=== PATIENT | female | born 1985 | race Two or more races ===

== ENCOUNTER → 2018-08-02 10:20 | Outpatient (CLI) | payer OTHER | END | disposition home or self-care (01) | LOC: LAB 10:20 | DX: Z11.3 Encounter for screening for infections with a predominantly sexual mode of transmission (principal) ==

== ENCOUNTER 2018-08-03 11:16 | Outpatient (CLI) | payer OTHER | END 2018-08-03 14:57 | disposition home or self-care (01) | LOC: MAMO-SONO 11:16 | DX: Z12.31 Encounter for screening mammogram for malignant neoplasm of breast (principal); N64.4 Mastodynia; N63.10 Unspecified lump in the right breast, unspecified quadrant; N63.20 Unspecified lump in the left breast, unspecified quadrant ==

== ENCOUNTER → 2019-08-30 08:28 | Outpatient (CLI) | payer OTHER ==
[~2019-08-30 08:28] MED LIST: LO LOESTRIN FE1 EACH PO
== END | disposition home or self-care (01) ==
LOC: LAB 08:28
PROVIDERS: ATTEND Obstetrics & Gynecology
DX: E03.8 Other specified hypothyroidism (principal); N39.0 Urinary tract infection, site not specified; E78.2 Mixed hyperlipidemia; E56.9 Vitamin deficiency, unspecified; E55.9 Vitamin D deficiency, unspecified; R97.1 Elevated cancer antigen 125 [CA 125]; R53.1 Weakness; E66.01 Morbid (severe) obesity due to excess calories; Z11.3 Encounter for screening for infections with a predominantly sexual mode of transmission; E16.1 Other hypoglycemia

== ENCOUNTER → 2019-10-25 | Outpatient (CLI) | payer OTHER | END | disposition home or self-care (01) | LOC: MAMO-SONO 12:10 | PROVIDERS: ATTEND General Practice | DX: R94.6 Abnormal results of thyroid function studies (principal); Z12.31 Encounter for screening mammogram for malignant neoplasm of breast; N64.4 Mastodynia; N64.59 Other signs and symptoms in breast ==

== ENCOUNTER → 2020-01-08 14:59 | Outpatient (CLI) | payer OTHER | END | disposition home or self-care (01) | LOC: LAB 14:59 | PROVIDERS: ATTEND Internal Medicine | DX: R05 Cough (principal); Z20.828 Contact with and (suspected) exposure to other viral communicable diseases ==

== ENCOUNTER 2020-02-08 10:04 | Outpatient (CLI) | payer OTHER | END 2020-02-08 14:26 | disposition home or self-care (01) | LOC: LAB 10:04 | PROVIDERS: ATTEND Internal Medicine | DX: Z20.828 Contact with and (suspected) exposure to other viral communicable diseases (principal) ==

== ENCOUNTER 2020-02-13 11:43 | Outpatient (CLI) | payer OTHER | END 2020-02-13 11:44 | disposition home or self-care (01) | LOC: LAB 11:43 | DX: Z20.828 Contact with and (suspected) exposure to other viral communicable diseases (principal) ==

== ENCOUNTER 2020-02-26 13:54 | Outpatient (CLI) | payer OTHER | END 2020-02-26 13:55 | disposition home or self-care (01) | LOC: LAB 13:54 | PROVIDERS: ATTEND Internal Medicine | DX: R05 Cough (principal); Z20.828 Contact with and (suspected) exposure to other viral communicable diseases ==

== ENCOUNTER → 2020-05-01 14:20 | Outpatient (CLI) | payer OTHER | END | disposition home or self-care (01) | LOC: LAB 14:20 | PROVIDERS: ATTEND Internal Medicine | DX: R05 Cough (principal); Z20.822 Contact with and (suspected) exposure to COVID-19 ==

== ENCOUNTER 2020-07-17 07:02 | Outpatient (CLI) | payer OTHER | END 2020-07-17 07:12 | disposition home or self-care (01) | LOC: SONOGRAMA 07:02 | PROVIDERS: ATTEND Internal Medicine | DX: Z12.31 Encounter for screening mammogram for malignant neoplasm of breast (principal) ==

== ENCOUNTER → 2020-10-21 09:30 | Outpatient (CLI) | payer OTHER ==
[~2020-10-21 09:30] MED LIST changes: +INTESTINEX680 M1 PO; +MONDOXYNE NL100 MG PO
== END | disposition home or self-care (01) ==
LOC: ASH CLINIC 09:30
PROVIDERS: ATTEND Internal Medicine Pulmonary Disease
DX: Z23 Encounter for immunization (principal); U07.1 COVID-19

== ENCOUNTER 2021-04-14 14:20 | Outpatient (CLI) | payer OTHER | END 2021-04-14 16:37 | disposition home or self-care (01) | LOC: LAB 14:20 | DX: Z20.822 Contact with and (suspected) exposure to COVID-19 (principal); Z11.52 Encounter for screening for COVID-19 ==

== ENCOUNTER → 2021-05-06 15:38 | Outpatient (CLI) | payer OTHER | END | disposition home or self-care (01) | LOC: LAB 13:26 | PROVIDERS: ATTEND Obstetrics & Gynecology | DX: E16.2 Hypoglycemia, unspecified (principal); N39.0 Urinary tract infection, site not specified; E78.2 Mixed hyperlipidemia; E56.9 Vitamin deficiency, unspecified; E55.9 Vitamin D deficiency, unspecified; E03.9 Hypothyroidism, unspecified; R97.1 Elevated cancer antigen 125 [CA 125]; R53.1 Weakness; E66.01 Morbid (severe) obesity due to excess calories; Z11.3 Encounter for screening for infections with a predominantly sexual mode of transmission ==

== ENCOUNTER 2021-10-28 09:30 | Outpatient (CLI) | payer OTHER | END 2021-10-28 12:44 | disposition home or self-care (01) | LOC: SONOGRAMA 09:30 | DX: Z12.31 Encounter for screening mammogram for malignant neoplasm of breast (principal); N64.4 Mastodynia; N63.0 Unspecified lump in unspecified breast ==

== ENCOUNTER 2022-02-16 12:08 | Outpatient (CLI) | payer OTHER ==
[~2022-02-16 12:08] MED LIST changes: +NORFLEX100MG PO
== END 2022-02-16 12:09 | disposition home or self-care (01) ==
LOC: RAD 12:08 → LAB 12:08
PROVIDERS: ATTEND Internal Medicine
DX: M54.6 Pain in thoracic spine (principal)

== ENCOUNTER 2023-08-30 12:09 | Outpatient (CLI) | payer OTHER ==
[~2023-08-30 12:09] MED LIST changes: +BUDESONIDE0.5 MG/2 M IH; +DEXCOM G7 SENS1 EACH SUBCUTANEO; +DICLEGIS DR 101 EACH PO; +RAYOS5 MG PO; +XOPENEX CO1.25 MG/0. IH; +ZITHROMAX500 MG PO
== END 2023-08-30 12:13 | disposition home or self-care (01) ==
LOC: RAD 12:09
PROVIDERS: ATTEND Internal Medicine
DX: R05.9 Cough, unspecified (principal)

== ENCOUNTER 2023-09-08 10:56 | Outpatient (CLI) | payer OTHER ==
[2023-09-08 11:34] LABS: URINE APPEARANCE Clear; URINE BILIRRUBIN Negative (NEGATIVE); URINE BLOOD Negative; URINE COLOR Yellow; URINE GLUCOSE Negative (NEGATIVE); URINE LEUKOCYTE Negative; URINE NITRATE Negative; URINE PROTEIN Negative (NEGATIVE)
[2023-09-08 11:39] LABS: URINE BACTERIA 40.3 uL (0.0-1933); URINE EPITHELIAL CELLS 3.8 uL (0.0-38.8); URINE RBC 0.9 uL (0.0-20.8); URINE WBC 2.7 uL (0.0-23.2)
[2023-09-08 12:24] LABS: HEMATOCRIT 35.6 % (36.0-45.00); HEMOGLOBIN 12.5 g/dL (12.0-15.00); MEAN CORPUSCULAR HEMOGLOBIN 29.5 pg (27.00-32.0); MEAN CORPUSCULAR HGB CONC 35.1 g/dl (32.0-36.0); PLATELET COUNT 180 K/uL (150-450); RED BLOOD COUNT 4.23 M/uL (4.00-6.00); RED CELL DISTRIBUTION WIDTH 13.5 % (11.5-14.5)
== END 2023-09-08 10:57 | disposition home or self-care (01) ==
LOC: LAB 10:56
PROVIDERS: ATTEND Obstetrics & Gynecology Maternal & Fetal Medicine
DX: Z34.81 Encounter for supervision of other normal pregnancy, first trimester (principal)

== ENCOUNTER 2023-11-01 18:15 | Inpatient (IN) | payer OTHER ==
[~2023-11-01] VITALS: Ht 162.6 cm; Wt 72.6 kg
[2023-11-01 18:05] VITALS: BP 155/99; BP 162/96
[2023-11-01] MEDS ORDERED: MAGNESIUM SULFATE IN WATER 4GM/50ML PIGGYBAG IV ONE (18:18)
[2023-11-01] MEDS ORDERED: MAGNESIUM SULFATE IN WATER 0.04 GM/ML IV.SOLN IV ONE (18:18)
[2023-11-01] MEDS ORDERED: BETAMETHASONE ACETATE,SOD PHOS 30 MG/5 ML ML ONE (18:18)
[2023-11-01] MEDS ORDERED: BETAMETHASONE ACETATE,SOD PHOS 30 MG/5 ML ML IM ONE (18:30)
[2023-11-01] MEDS ORDERED: MAGNESIUM SULFATE IN WATER 500 ML IV SCH (18:45)
[2023-11-01] MEDS ORDERED: MAGNESIUM SULFATE IN WATER 100 ML IV ONE (18:45)
[2023-11-01] MEDS ORDERED: RINGERS SOLUTION,LACTATED 1,000 ML IV SCH (18:45)
[2023-11-01] MEDS ORDERED: MORPHINE SULFATE 4 MG/ML CARTRIDGE IV ONE (18:45)
[2023-11-01] MEDS ORDERED: PRENATABS RX T1 EACH PO (18:54)
[2023-11-01 19:25] LABS: HEMATOCRIT 36.9 % (36.0-45.00); HEMOGLOBIN 12.9 g/dL (12.0-15.00); MEAN CELL VOLUME 84.5 fL (80.00-100.00); MEAN CORPUSCULAR HEMOGLOBIN 29.5 pg (27.00-32.0); PLATELET COUNT 226 K/uL (150-450); RED BLOOD COUNT 4.36 M/uL (4.00-6.00); RED CELL DISTRIBUTION WIDTH 13.6 % (11.5-14.5)
[2023-11-01] MEDS ORDERED: AMPICILLIN SODIUM 2,000 MG VIAL ONE (19:27)
[2023-11-01] MEDS ORDERED: AMPICILLIN SODIUM 2,000 MG VIAL IV ONE (19:30)
[2023-11-01 19:51] LABS: INR < 0.93; PROTHROMBIN TIME 10.1 SECONDS (9.0-11.5)
[2023-11-01 19:56] LABS: ALBUMIN 2.7 gm/dL (3.4-5.0); BILIRUBIN TOTAL 0.61 mg/dL (0.3-1.2); CREATININE SERUM 0.52 mg/dL (0.55-1.02); GFR 132.69; GLOBULINA 3.5 G/DL (2.4-3.5); POTASSIUM 4.14 mEq/L (3.5-5.1); TOTAL PROTEIN 6.2 gm/dL (6.4-8.2)
[2023-11-01] MEDS ORDERED: AZITHROMYCIN 500 MG TABLET PO SCH (20:15)
[2023-11-01] MEDS ORDERED: AMPICILLIN SODIUM 1,000 MG VIAL IV SCH (21:00)
[2023-11-01 23:41] VITALS: BP 136/78
[2023-11-02] VITALS (8 sets, daily range): BP systolic 115–143; BP diastolic 63–88; O2SAT 99
[2023-11-02] MEDS ORDERED: MORPHINE SULFATE 4 MG/ML VIAL IV PRN (01:45)
[2023-11-02] MEDS ORDERED: NALOXONE HCL 0.4 MG/ML AMPUL ONE (04:13)
[2023-11-02] MEDS ORDERED: OXYTOCIN 20 UNITS/1000ML RL PIGGYBAG IV ONE (04:14)
[2023-11-02] MEDS ORDERED: CHLORHEXIDINE GLUCONATE 120 ML BOTTLE TOP ONE ×2 (04:14→06:45)
[2023-11-02] MEDS ORDERED: LIDOCAINE HCL 1% 10ML VIAL ONE (04:14)
[2023-11-02] MEDS ORDERED: ERYTHROMYCIN BASE 1 GM TUBE OP ONE ×2 (04:14→06:45)
[2023-11-02] MEDS ORDERED: OXYTOCIN 10 UNITS/ML VIAL ONE (05:07)
[2023-11-02] MEDS ORDERED: OxyCODONE HCL/APAP UD (PERCOCET) PO PRN (05:30)
[2023-11-02] MEDS ORDERED: OXYTOCIN 1,000 ML IV SCH (05:30)
[2023-11-02] MEDS ORDERED: IBUprofen 400 MG TABLET PO PRN (05:30)
[2023-11-02] MEDS ORDERED: NALOXONE HCL 0.4 MG/ML AMPUL IV ONE (06:45)
[2023-11-02] MEDS ORDERED: LIDOCAINE HCL 1% 10ML VIAL IJ ONE (06:45)
[2023-11-02] MEDS ORDERED: BETAMETHASONE ACETATE,SOD PHOS 30 MG/5 ML ML IM ONE (18:30)
[2023-11-03 01:53] VITALS: BP 117/73
[2023-11-03 08:50] VITALS: BP 123/84
[2023-11-03 11:47] VITALS: BP 123/84
[2023-11-03 16:46] VITALS: BP 130/85
[2023-11-04] VITALS: BP 118/72
[2023-11-04 09:21] VITALS: BP 130/70
[2023-11-04 17:17] VITALS: BP 129/81
== END 2023-11-04 18:07 | disposition home or self-care (01) | DRG 768 ==
LOC: LDR 18:15 → OB/GYN 11-02 07:03
PROVIDERS: ADMIT Obstetrics & Gynecology; ATTEND Obstetrics & Gynecology
PROC: 4A1HXCZ Monitoring of Products of Conception, Cardiac Rate, External Approach (ICD-10-PCS; 2023-11-01)
PROC: 10E0XZZ Delivery of Products of Conception, External Approach (ICD-10-PCS; principal; 2023-11-02)
PROC: 0UQC7ZZ Repair Cervix, Via Natural or Artificial Opening (ICD-10-PCS; 2023-11-02)
DX: O71.3 Obstetric laceration of cervix (principal); O60.14X0 Preterm labor third trimester with preterm delivery third trimester, not applicable or unspecified; Z37.0 Single live birth; Z3A.32 32 weeks gestation of pregnancy; Z20.822 Contact with and (suspected) exposure to COVID-19